=== PATIENT | female | born 1950 | race Caucasian/White ===

== ENCOUNTER → 2016-10-11 | Outpatient (CLI) | payer MEDICARE ==
--- NOTE | 2016-10-12 12:22 | MM ---
Reason for exam: screening (asymptomatic). Last mammogram was performed 1 year and 8 months ago. History: Patient is postmenopausal. Took estrogen for 5 years. Physical Findings: A clinical breast exam by your physician is recommended on an annual basis and results should be correlated with mammographic findings. MG 3D Screening Mammo W/Cad Bilateral CC and MLO view(s) were taken. Prior study comparison: February 17, 2015, bilateral MG screening mammo w CAD. February 09, 2014, left breast MG work up mamm w CAD LT. The breast tissue is heterogeneously dense. This may lower the sensitivity of mammography. There is no discrete abnormality. No significant changes when compared with prior studies. ASSESSMENT: Negative, BI-RAD 1 RECOMMENDATION: Routine screening mammogram of both breasts in 1 year.
== END ==
LOC: RADMAMWWP 14:38
PROVIDERS: ATTEND Family Medicine
DX: Z12.31 Encounter for screening mammogram for malignant neoplasm of breast (principal)
CPT/HCPCS: 77063; G0202

== ENCOUNTER 2017-11-06 08:32 | Day surgery (SDC) | payer MEDICARE ==
[2017-10-31 15:30] VITALS: BMI 30.1
[~2017-11-06 08:32] MED LIST: LACTATED RINGERS 1,000 ML IV SCH
[2017-11-06 09:21] VITALS: RESP 16; TEMP 99.1
[2017-11-06] MEDS ORDERED: LIDOCAINE 1% INJ 10MG/ML (20 ML MDV) ONE (10:27)
[2017-11-06] MEDS ORDERED: PROPOFOL 10 MG/ML 20 ML VIAL IV ONE (10:27)
--- NOTE | 2017-11-06 10:45 | P.PCN ---
Date of Procedure: 11/06/17 Procedure(s) Performed: BRIEF HISTORY: Patient is a 67-year-old pleasant white female, scheduled for an elective colonoscopy as a part of screening for colorectal neoplasia. PROCEDURE PERFORMED: Colonoscopy. PREOPERATIVE DIAGNOSIS: Screening for colon cancer. IV sedation per Anesthesia. PROCEDURE: After informed consent was obtained, the patient, was brought into the endoscopy unit. IV sedation was administered by Anesthesia under continuous monitoring. Digital rectal examination was normal. Initially the Olympus CF- 160 flexible video colonoscope was then inserted in the rectum, gradually advanced into the cecum without any difficulty. Careful examination was performed as the scope was gradually being withdrawn. Ileocecal valve and the appendiceal orifice were visualized and appeared normal. Prep was excellent. Mucosa of the cecum, ascending colon, transverse colon, descending colon, sigmoid colon, and rectum appeared normal. Scattered sigmoid diverticulosis seen. Retroflexion was performed in the rectum and small internal hemorrhoids were seen. The patient tolerated the procedure well. IMPRESSION: Normal-appearing colon from rectum to cecum with no evidence of colorectal neoplasia . Scattered sigmoid diverticulosis Small internal hemorrhoids RECOMMENDATIONS: Findings of this examination were discussed with the patient as well as a family. She was advised to have a repeat screening colonoscopy in 10 years.
[2017-11-06 11:03] VITALS: BP 143/83; PULSE 64
== END 2017-11-06 12:10 | disposition home or self-care (01) ==
LOC: ORWHC2ENDO 08:32
PROVIDERS: ATTEND Internal Medicine Gastroenterology
DX: Z12.11 Encounter for screening for malignant neoplasm of colon (principal); K57.30 Diverticulosis of large intestine without perforation or abscess without bleeding; K21.9 Gastro-esophageal reflux disease without esophagitis; I10 Essential (primary) hypertension; K64.8 Other hemorrhoids; Z79.899 Other long term (current) drug therapy
CPT/HCPCS: J2001; J2704; G0121

== ENCOUNTER → 2019-03-18 | Outpatient (CLI) | payer MEDICARE ==
--- NOTE | 2019-03-19 11:44 | MM ---
Reason for exam: screening (asymptomatic). Last mammogram was performed 2 years and 5 months ago. History: Patient is postmenopausal. Took estrogen for 5 years. Physical Findings: A clinical breast exam by your physician is recommended on an annual basis and results should be correlated with mammographic findings. MG 3D Screening Mammo W/Cad Bilateral CC and MLO view(s) were taken. Prior study comparison: October 11, 2016, bilateral MG 3d screening mammo w/cad. February 17, 2015, bilateral MG screening mammo w CAD. The breast tissue is heterogeneously dense. This may lower the sensitivity of mammography. Benign appearing bilateral calcifications. No suspicious abnormality. No significant changes when compared with prior studies. ASSESSMENT: Benign, BI-RAD 2 RECOMMENDATION: Routine screening mammogram of both breasts in 1 year.
== END | disposition home or self-care (01) ==
LOC: RADMAMWWP 09:07
PROVIDERS: ATTEND Family Medicine
DX: Z12.31 Encounter for screening mammogram for malignant neoplasm of breast (principal)
CPT/HCPCS: 77063; 77067

== ENCOUNTER → 2019-03-25 | Outpatient (CLI) | payer MEDICARE ==
--- NOTE | 2019-03-25 12:36 | BD ---
EXAMINATION TYPE: Axial Bone Density DATE OF EXAM: 03/25/2019 COMPARISON: NONE CLINICAL HISTORY: M 81.0 Height: 5 FT 2 1/4 IN Weight: 161 FRAX RISK QUESTIONS: Alcohol (3 or more units per day): NO Family History (Parent hip fracture): NO Glucocorticoids (More than 3mos): NO (Ex: prednisone, prednisolone, methylprednisolone, dexamethasone, and hydrocortisone). History of Fracture in Adulthood: NO Secondary Osteoporosis: 1. Type 1 Diabetes: NO 2. Hyperthyroidism: NO 3. Menopause before 45: YES 4. Malnutrition: NO 5. Chronic liver disease: NO Rheumatoid Arthritis: NO Current Tobacco Use: NO RISK FACTORS HISTORY OF: Active: YES Postmenopausal woman: BEFORE AGE 45 UNSURE MEDICATIONS: Additional Medications: OMEPRAZOLE, AMLODIPINE, CYCLOSPORINE, MAGNESIUM, CALCIUM VIT D Additional History: EXAM MEASUREMENTS: Bone mineral densitometry was performed using the [employer] System. Bone mineral density as measured about the Lumbar spine is: ----- L1-L4(G/cm2): 1.188 T Score Values are as follows: ----- L2: -0.4 ----- L3: 1.4 ----- L4: -0.4 ----- L1-L4: 0.1 BASELINE HERE Bone mineral density about the R hip (g/cm2): 0.920 Bone mineral density about the L hip (g/cm2): 0.886 T Score values are as follows: -----R Neck: -0.8 -----L Neck: -1.1 -----R Total: -0.6 -----L Total: -1.0 BASELINE IMPRESSION: Osteopenia (T Score between -2.5 and -1). There is slightly increased risk of fracture and the patient may be considered for treatment. Re-Screen 2-5 years. NOTE: T-SCORE=SD OF THE YOUNG ADULT MEAN.
== END | disposition home or self-care (01) ==
LOC: RADBDWWP 07:42
PROVIDERS: ATTEND Family Medicine
DX: M81.0 Age-related osteoporosis without current pathological fracture (principal)
CPT/HCPCS: 77080

== ENCOUNTER → 2020-01-05 | Outpatient (CLI) | payer MEDICARE ==
[2020-01-05 15:16] LABS: Basophils # (A) 0.1 k/uL (0-0.2); Basophils % (A) 1 %; Eosinophils # (A) 0.1 k/uL (0-0.7); Eosinophils % (A) 1 %; HGB 13.7 gm/dL (11.4-16.0); Lymphocytes # (A) 1.8 k/uL (1.0-4.8); Lymphocytes % (A) 29 %; MCH 30.4 pg (25.0-35.0); MCHC 31.8 g/dL (31.0-37.0); MCV 95.5 fL (80.0-100.0); Mean Platelet Volume 7.3; Monocytes # (A) 0.4 k/uL (0-1.0); Monocytes % (A) 7 %; Neutrophils # (A) 3.6 k/uL (1.3-7.7); Neutrophils % (A) 59 %; Platelet Count 261 k/uL (150-450); RBC 4.51 m/uL (3.80-5.40); RDW 12.5 % (11.5-15.5); WBC 6.1 k/uL (3.8-10.6)
[2020-01-05 21:02] LABS: African American GFR (CKD) 75.6 (60.0-200.0); Albumin 4.7 g/dL (3.80-4.90); Albumin/Globulin Ratio 2.14 (1.60-3.17); Anion Gap 8.6 mmol/L (4.00-12.00); BUN/Creat Ratio 23.33 Ratio (12.00-20.00); Calcium 9.6 mg/dL (8.7-10.3); Carbon Dioxide 26.4 mmol/L (21.6-31.8); Globulin 2.2 g/dL (1.6-3.3); Non-African American GFR(CKD) 65.2 (60.0-200.0); Potassium 4.3 mmol/L (3.5-5.5); Total Bilirubin 0.8 mg/dL (0.3-1.2); Total Protein 6.9 g/dL (6.2-8.2)
== END | disposition home or self-care (01) ==
LOC: LABWHC1 14:03
PROVIDERS: ATTEND Urology
DX: N30.10 Interstitial cystitis (chronic) without hematuria (principal)
CPT/HCPCS: 36415; 80053; 85025

== ENCOUNTER → 2020-05-31 | Outpatient (CLI) | payer MEDICARE ==
--- NOTE | 2020-06-01 09:50 | MM ---
Reason for exam: screening (asymptomatic). Last mammogram was performed 1 year and 2 months ago. History: Patient is postmenopausal. Family history of breast cancer in paternal cousin. Took estrogen for 5 years. Physical Findings: A clinical breast exam by your physician is recommended on an annual basis and results should be correlated with mammographic findings. MG 3D Screening Mammo W/Cad Bilateral CC and MLO view(s) were taken. Prior study comparison: March 18, 2019, bilateral MG 3d screening mammo w/cad. October 11, 2016, bilateral MG 3d screening mammo w/cad. The breast tissue is heterogeneously dense. This may lower the sensitivity of mammography. Right breast retroareolar nodularity. ASSESSMENT: Incomplete: need additional imaging evaluation, BI-RAD 0 RECOMMENDATION: Special view mammogram and ultrasound of the right breast. [facility] will attempt to contact patient to return for supplemental views and ultrasound.
== END | disposition home or self-care (01) ==
LOC: RADMAMWWP 12:59
PROVIDERS: ATTEND Family Medicine
DX: Z12.31 Encounter for screening mammogram for malignant neoplasm of breast (principal)
CPT/HCPCS: 77063; 77067

== ENCOUNTER → 2020-06-09 | Outpatient (CLI) | payer MEDICARE ==
--- NOTE | 2020-06-10 11:35 | MM ---
Reason for exam: additional evaluation requested from abnormal screening. Last mammogram was performed less than 1 month ago. History: Patient is postmenopausal. Family history of breast cancer in paternal cousin. Took estrogen for 5 years. Physical Findings: Nurse did not find any significant physical abnormalities on exam. MG 3D Work Up W/Cad RT Spot compression CC, spot compression MLO, and LM view(s) were taken of the right breast. Prior study comparison: May 31, 2020, bilateral MG 3d screening mammo w/cad. March 18, 2019, bilateral MG 3d screening mammo w/cad. Persistent retroareolar nodularity. Ultrasound recommended. These results were verbally communicated with the patient and result sheet given to the patient on 06/09/20. ASSESSMENT: Incomplete: need additional imaging evaluation, BI-RAD 0 RECOMMENDATION: Ultrasound of the right breast.
--- NOTE | 2020-06-10 11:36 | USB ---
Reason for exam: additional evaluation requested from abnormal screening. History: Patient is postmenopausal. Family history of breast cancer in paternal cousin. Took estrogen for 5 years. US Breast Workup Limited RT Right limited breast ultrasound including focal area of concern, retroareolar and axilla demonstrates duct ectactia at the posterior nipple. These results were verbally communicated with the patient and result sheet given to the patient on 06/09/20. ASSESSMENT: Benign, BI-RAD 2 RECOMMENDATION: Return to routine screening mammogram schedule for both breasts.
== END | disposition home or self-care (01) ==
LOC: RADMAMWWP 14:48
PROVIDERS: ATTEND Family Medicine
DX: R92.8 Other abnormal and inconclusive findings on diagnostic imaging of breast (principal)
CPT/HCPCS: 77065; 76642; G0279; 77061

== ENCOUNTER → 2021-07-05 | Outpatient (CLI) | payer MEDICARE ==
[2021-07-05 18:27] LABS: Basophils # (A) 0.04 X 10*3/uL (0.00-0.10); Basophils % (A) 0.7 %; Eosinophils % (A) 1.8 %; HCT 43.3 % (37.2-46.3); HGB 14.2 g/dL (12.0-15.0); Immature Grans, Automated 0.2 %; Lymphocytes # (A) 1.77 X 10*3/uL (0.90-5.00); Lymphocytes % (A) 31.8 %; MCH 31.2 pg (27.0-32.0); MCHC 32.8 g/dL (32.0-37.0); MCV 95.2 fL (80.0-97.0); Mean Platelet Volume 9.7 fL (9.5-12.2); Monocytes # (A) 0.53 X 10*3/uL (0.20-1.00); Monocytes % (A) 9.5 %; NRBC Per 100 WBC 0 /100 WBCS (0.0-0.0); Neutrophils # (A) 3.11 X 10*3/uL (1.80-7.70); Platelet Count 305 X 10*3/uL (140-440); RBC 4.55 X 10*6/uL (4.10-5.20); RDW 12.7 % (11.5-14.5); WBC 5.56 X 10*3/uL (4.50-10.00)
[2021-07-05 18:46] LABS: African American GFR (CKD) 80.5 (60.0-200.0); Non-African American GFR(CKD) 69.4 (60.0-200.0)
[2021-07-05 18:54] LABS: Hepatitis B Surface AB- Quant 3.5 mIU/mL; Hepatitis B Surface Antibody Nonreactive (Nonreactive)
[2021-07-05 18:55] LABS: Hepatitis B Surface Antigen Nonreactive (Nonreactive)
== END | disposition home or self-care (01) ==
LOC: LABWHC1 12:02
PROVIDERS: ATTEND Dermatology
DX: L92.0 Granuloma annulare (principal)
CPT/HCPCS: 36415; 82565; 84450; 84460; 85025; 86480; 86706; 87340

== ENCOUNTER → 2021-08-25 | Outpatient (CLI) | payer MEDICARE ==
--- NOTE | 2021-08-29 14:11 | MM ---
Reason for Exam: Screening (asymptomatic). Last mammogram was performed 1 year(s) and 3 month(s) ago. Patient History: Menarche at age 11. First Full-Term at age 20. Hysterectomy at age 58. Postmenopausal. Estrogen for 5 years until age 54. Paternal cousin had breast cancer. Film Views: Bilateral CC views were taken. Bilateral MLO views were taken. Prior Study Comparison: 03/18/2019 Bilateral Screening Mammogram, [facility]. 05/31/2020 Bilateral Screening Mammogram, [facility]. Tissue Density: The breast tissue is heterogeneously dense. This may lower the sensitivity of mammography. Findings: Analyzed By CAD. There are benign appearing round calcifications bilaterally. No discrete abnormality. Overall Assessment: Benign, BI-RAD 2 Management: Screening Mammogram of both breasts in 1 year.
== END | disposition home or self-care (01) ==
LOC: RADMAMWWP 12:40
PROVIDERS: ATTEND Family Medicine
DX: Z12.31 Encounter for screening mammogram for malignant neoplasm of breast (principal)
CPT/HCPCS: 77063; 77067

== ENCOUNTER → 2022-02-13 | Outpatient (CLI) | payer MEDICARE ==
[2022-02-13 14:44] LABS: ALT 7 U/L (8-44); AST 16 U/L (13-35); African American GFR (CKD) 78.4 (60.0-200.0); Albumin 4.5 g/dL (3.8-4.9); Alkaline Phosphatase 70 U/L (41-126); BUN/Creat Ratio 25.14 Ratio (12.00-20.00); Blood Urea Nitrogen 21.7 mg/dL (9.0-27.0); Calcium 9.6 mg/dL (8.7-10.3); Carbon Dioxide 28.6 mmol/L (20.0-27.5); Chloride 104 mmol/L (96-109); Chol/HDL Ratio 2.83 Ratio; Globulin 2.8 g/dL (1.6-3.3); Glucose 95 mg/dL (70-110); LDL Cholesterol,Calculated 105.3 mg/dL (0.0-131.0); Non-African American GFR(CKD) 67.7 (60.0-200.0); Potassium 4.2 mmol/L (3.5-5.5); Sodium 142 mmol/L (135-145); Total Protein 7.3 g/dL (6.2-8.2); VLDL Calculation 18.84 mg/dL (5.00-40.00)
== END | disposition home or self-care (01) ==
LOC: LABWHC1 08:35
PROVIDERS: ATTEND Family Medicine
DX: Z00.00 Encounter for general adult medical examination without abnormal findings (principal); E78.5 Hyperlipidemia, unspecified
CPT/HCPCS: 36415; 80053; 80061

== ENCOUNTER 2022-04-20 09:41 | Emergency (ER) | payer MEDICARE ==
[2022-04-20 10:09] VITALS: BP 113/76; PULSE 85; RESP 20; TEMP 98.1
--- NOTE | 2022-04-20 10:56 | XR ---
EXAMINATION TYPE: XR Hip Complete RT DATE OF EXAM: 04/20/2022 COMPARISON: None HISTORY: Injury, pain TECHNIQUE: 2 view right hip FINDINGS: Femoral head articulates with the acetabulum. Joint space is preserved. No acute fracture o r dislocation is evident. IMPRESSION: 1. No acute osseous abnormality right hip
[2022-04-20] MEDS ORDERED: KETOROLAC 15 MG/ML 1 ML VIAL IM STA (11:17)
--- NOTE | 2022-04-20 12:35 | CT ---
EXAMINATION TYPE: CT lumbar spine wo con DATE OF EXAM: 04/20/2022 COMPARISON: None HISTORY: Back pain, pt injured RT hip yesterday and not able to apply pressure to walk. CT DLP: 788.4 mGycm CONTRAST: None TECHNIQUE: CT of the lumbar spine is performed on a spiral scan at 3 mm thick sections. Reconstructed images are performed in the coronal and sagittal planes. FINDINGS: There is diffuse loss of disc height throughout the lumbar spine. Vacuum disc phenomenon is present L1-2 through L4-5. Vertebral body heights appear preserved. Some mild endplate changes are p resent L2-3 through L4-5. T12-L1: No focal disc herniation or significant disc bulge is evident. No spinal canal stenosis or neural foraminal stenosis is present. L1-L2: Mild disc bulge is present with anterior thecal sac flattening. No AP spinal canal stenosis is present. Neural foramen appear patent. No spinal canal stenosis or neural foraminal stenosis is pres ent L2-L3: Degenerative disc changes has some residual disc with flattening along the anterior thecal sac . No AP spinal canal stenosis is present. Moderate left foraminal narrowing is present. Moderate to s evere right foraminal narrowing is present. L3-L4: Mild residual disc is anterior thecal sac flattening. No AP spinal canal stenosis present. No spinal canal stenosis. Facet hypertrophy has moderate left posterior lateral thecal sac impression. M oderate left and right foraminal narrowing is present. L4-L5: No focal disc herniation or significant disc bulge is evident. Mild anterior thecal sac flatte shannan from residual disc is present. No spinal canal stenosis. Mild left foraminal narrowing is pres ent. Moderate to severe right foraminal stenosis is present. L5-S1: No focal disc herniation or significant disc bulge is evident. No spinal canal stenosis or n eural foraminal stenosis is present Vertebral alignment appears normal. IMPRESSION: 1. Multilevel degenerative disc changes. Mild anterior thecal sac flattening from residual disc bulgi ng or endplate changes are present through the lumbar spine. 2. Facet hypertrophy most notably left L3-4 with moderate posterior lateral thecal sac impression. 3. Foraminal stenosis discussed above. Lipscomb greatest at the right L4-5 level with moderate to sever e narrowing. 4. No acute changes identified.
--- NOTE | 2022-04-20 12:40 | CT ---
EXAMINATION TYPE: CT pelvis wo con DATE OF EXAM: 04/20/2022 COMPARISON: None HISTORY: Back pain, pt injured RT hip yesterday and not able to apply pressure to walk. CT DLP: 680.5 mGycm Automated exposure control for dose reduction was used. Contrast: None Technique: Axial images 3 mm thick sections. Reconstructed images in the coronal and sagittal plane. FINDINGS: The femoral heads articulate with the acetabulum. Subchondral cysts in the left acetabulum roof. No a cute fractures are identified. Sacroiliac joints and symphysis pubis appear intact. No acute pelvic fractures are identified. Note is made of a large contusion of the subcutaneous right hip soft tissues. Underlying hematoma oracio ears to be present with thickening of the musculature about the hip compared to the left hip. This m easures approximately 8.5 x 3.8 cm in size. Example image series 204 image 31. Loops of bowel within the pelvis visualized appear unremarkable. No free air is within the pelvis. Ur inary bladder appears unremarkable. Uterus and ovaries are not identified. No free fluid is within th e pelvis. IMPRESSION: 1. LARGE CONTUSION WITH UNDERLYING HEMATOMA LATERAL PELVIC MUSCULATURE SUPERIOR TO THE LEFT HIP.
--- NOTE | 2022-04-20 12:48 | ED ---
General Adult HPI - General Chief complaint: Extremity Injury, Lower Stated complaint: rt hip pain Time Seen by Provider: 04/20/22 10:45 Source: patient, RN notes reviewed Mode of arrival: wheelchair Limitations: physical limitation - History of Present Illness Initial comments: 72-year-old female presents emergency Department with chief complaint of right hip low back pain. Patient states that pain is severe symptoms worsen. Patient states she started when she was at her mothers tried to caregiver states that she's trying to the bathroom started over the bathroom quickly her legs crossed and felt the pain onset. He states it's in her lateral portion of her right hip in buttocks region. Patient denies any traumatic falls. States it's increase in pain with weightbearing, movement of her leg in certain positions she has no pain when she sits upright. She denies any bowel, bladder incontinence or retention. Denies any saddle anesthesia. - Related Data Home Medications Medication Instructions Recorded Confirmed amLODIPine BESYLATE/BENAZEPRIL 1 each PO DAILY 03/25/14 11/06/17 [Amlodipine-Benazepril 5-10 mg] Acetaminophen Tab [Tylenol Tab] 325 - 650 mg PO Q6H PRN 10/31/17 10/31/17 Multivitamins, Thera [Multivitamin 1 tab PO DAILY 10/31/17 10/31/17 (formulary)] Omeprazole 20 mg PO DAILY 10/31/17 10/31/17 cycloSPORINE [cycloSPORINE (GEQ 100 mg PO DAILY 10/31/17 10/31/17 for SandIMMUNE) 100MG] Previous Rx's Medication Instructions Recorded Ketorolac [Toradol] 10 mg PO Q8HR #15 tab 04/20/22 traMADol HCl [Ultram] 50 mg PO Q6H PRN #12 tab 04/20/22 Allergies Allergy/AdvReac Type Severity Reaction Status Date / Time amoxicillin Allergy Rash/Hives Verified 04/20/22 10:10 doxycycline Allergy Rash/Hives Verified 04/20/22 10:10 Review of Systems ROS Statement: Those systems with pertinent positive or pertinent negative responses have been documented in the HPI. ROS Other: All systems not noted in ROS Statement are negative. Past Medical History Past Medical History: GERD/Reflux, Hypertension, Osteoarthritis (OA) Additional Past Medical History / Comment(s): hx of bladder ulcers History of Any Multi-Drug Resistant Organisms: None Reported Past Surgical History: Bladder Surgery, Hysterectomy, Tonsillectomy Additional Past Surgical History / Comment(s): cystocele surgery x2, Past Anesthesia/Blood Transfusion Reactions: Postoperative Nausea & Vomiting (PONV) Past Psychological History: No Psychological Hx Reported Smoking Status: Never smoker Past Alcohol Use History: Occasional Past Drug Use History: None Reported - Past Family History Mother Family Medical History: Cancer Additional Family Medical History / Comment(s): skin Father Family Medical History: Cancer Additional Family Medical History / Comment(s): prostate General Exam Limitations: no limitations General appearance: alert, in no apparent distress Head exam: Present: atraumatic, normocephalic, normal inspection Eye exam: Present: normal appearance, PERRL, EOMI. Absent: scleral icterus, conjunctival injection, periorbital swelling Respiratory exam: Present: normal lung sounds bilaterally. Absent: respiratory distress, wheezes, rales, rhonchi, stridor Cardiovascular Exam: Present: regular rate, normal rhythm, normal heart sounds. Absent: systolic murmur, diastolic murmur, rubs, gallop, clicks GI/Abdominal exam: Present: soft, normal bowel sounds. Absent: distended, tenderness, guarding, rebound, rigid Extremities exam: Present: other (Pain with abduction, flexion extension of the right hip there is minimal tenderness palpation over the right hip region is neurovascularly intact, pain with logrolling) Neurological exam: Present: alert, reflexes normal. Absent: motor sensory deficit Skin exam: Present: warm, dry, intact, normal color. Absent: rash Course Vital Signs 04/20/22 10:07 Temperature 98.1 F Pulse Rate 85 Respiratory 20 Rate Blood Pressure 113/76 O2 Sat by Pulse 99 Oximetry Medical Decision Making - Medical Decision Making Was pt. sent in by a medical professional or institution (, PA, GLUE MAKER, urgent care, hospital, or fdc...) When possible be specific @ -No Did you speak to anyone other than the patient for history (EMS, parent, family, police, friend...)? What history was obtained from this source @ -No Did you review nursing and triage notes (agree or disagree)? Why? @ -I reviewed and agree with nursing and triage notes Were old charts reviewed (outside hosp., previous admission, EMS record, old EKG, old radiological studies, urgent care reports/EKG's, fdc records)? Report findings @ -No old charts were reviewed Differential Diagnosis (chest pain, altered mental status, abdominal pain women, abdominal pain men, vaginal bleeding, weakness, fever, dyspnea, syncope, headache, dizziness, GI bleed, back pain, seizure, CVA, palpatations, mental health)? @ -Right hip strain, right hip dislocation, right hip fracture, lumbar radiculopathy, this is is not all inconclusive EKG interpreted by me (3pts min.). @ -As above X-rays interpreted by me (1pt min.). @ -X-ray of the right hip does not show any acute process., Mild degenerative changes CT interpreted by me (1pt min.). @ -CT of the lumbar spine shows disc bulging, degenerative changes, CT of the pelvis shows large hematoma of the right hip region U/S interpreted by me (1pt. min.). @ -None done What testing was considered but not performed or refused? (CT, X-rays, U/S, labs)? Why? @ -None What meds were considered but not given or refused? Why? @ -Narcotic pain medication patient declined Did you discuss the management of the patient with other professionals (professionals i.e. , PA, GLUE MAKER, lab, RT, psych nurse, oncology social worker, validation architect, teacher, police liaison officer, egg caser)? Give summary @ -No Was smoking cessation discussed for >3mins.? @ -No Was critical care preformed (if so, how long)? @ -No Were there social determinants of health that impacted care today? How? (Homelessness, low income, unemployed, alcoholism, drug addiction, transportation, low edu. Level, literacy, decrease access to med. care, detention, rehab)? @ -No Was there de-escalation of care discussed even if they declined (Discuss DNR or withdrawal of care, Hospice)? DNR status @ -No What co-morbidities impacted this encounter? (DM, HTN, Smoking, COPD, CAD, Cancer, CVA, ARF, Chemo, Hep., AIDS, mental health diagnosis, sleep apnea, morbid obesity)? @ -None Was patient admitted / discharged? Hospital course, mention meds given and route, prescriptions, significant lab abnormalities, going to OR and other per tinent info. @ -Discharged Undiagnosed new problem with uncertain prognosis? @ -No Drug Therapy requiring intensive monitoring for toxicity (Heparin, Nitro, Insulin, Cardizem)? @ -No Were any procedures done? @ -No Diagnosis/symptom? @ -Right hip strain Acute, or Chronic, or Acute on Chronic? @ -acute Uncomplicated (without systemic symptoms) or Complicated (systemic symptoms)? @ -uncomplicated Side effects of treatment? @ -No Exacerbation, Progression, or Severe Exacerbation? @ -No Poses a threat to life or bodily function? How? (Chest pain, [place], [place], pneumonia, PE, COPD, DKA, ARF, appy, cholecystitis, CVA, Diverticulitis, Homicidal, Suicidal, threat to staff... and all critical care pts) @ -No Diagnosis/symptom? @ -Right hip hematoma Acute, or Chronic, or Acute on Chronic? @ -acute Uncomplicated (without systemic symptoms) or Complicated (systemic symptoms)? @ -uncomplicated Side effects of treatment? @ -no Exacerbation, Progression, or Severe Exacerbation @ -no Poses a threat to life or bodily function? @ -no Disposition Clinical Impression: Strain of right hip, Hip hematoma, right Disposition: HOME SELF-CARE Condition: Stable Instructions (If sedation given, give patient instructions): Hip Sprain (ED) Additional Instructions: Please return to the Emergency Department if symptoms worsen or any other concerns. Prescriptions: Ketorolac [Toradol] 10 mg PO Q8HR #15 tab traMADol HCl [Ultram] 50 mg PO Q6H PRN #12 tab PRN Reason: Pain Is patient prescribed a controlled substance at d/c from ED?: Yes When asked, does pt state using other controlled substances?: No If prescribed controlled substance>3 days was MAPS reviewed?: Prescribed <3 Days If opioid is for acute pain is fill amount 7 days or less?: Yes If Rx opioid, was Start Talking consent form obtained?: Yes Referrals: Ruben Frias DO [Primary Care Provider] - 1-2 days Juice Schwab MD [STAFF PHYSICIAN] - 1-2 days Time of Disposition: 12:48
== END 2022-04-20 13:30 | disposition home or self-care (01) ==
LOC: EC 09:41
DX: S76.011A Strain of muscle, fascia and tendon of right hip, initial encounter (principal); T14.8XXA Other injury of unspecified body region, initial encounter; I10 Essential (primary) hypertension; K21.9 Gastro-esophageal reflux disease without esophagitis; M19.90 Unspecified osteoarthritis, unspecified site; Z79.899 Other long term (current) drug therapy; Z88.0 Allergy status to penicillin; Z88.1 Allergy status to other antibiotic agents; X58.XXXA Exposure to other specified factors, initial encounter; Y92.009 Unspecified place in unspecified non-institutional (private) residence as the place of occurrence of the external cause
CPT/HCPCS: 73502; 72192; 72131; 99284; 96372; J1885

== ENCOUNTER → 2022-08-28 | Outpatient (CLI) | payer MEDICARE ==
--- NOTE | 2022-08-28 19:12 | BD ---
EXAMINATION TYPE: Axial Bone Density DATE OF EXAM: 08/28/2022 CLINICAL HISTORY: 72 years old Female. ICD-10 CODE: M89.9,R29.890 LOSS HEIGHT,M89.9 DISORDER OF BONE ,UNS Height: 62 Weight: 155 FRAX RISK QUESTIONS: Family History (Parent hip fracture): no History of Fracture in Adulthood: no Secondary Osteoporosis: no Rheumatoid Arthritis: no RISK FACTORS HISTORY OF: Family History of Osteoporosis: no Active: yes Diet low in dairy products/other sources of calcium: no Postmenopausal woman: yes Lost more than 2 inches in height since high school: no Frequent falls: no Poor Health: no MEDICATIONS: Additional Medications: yes hbp meds, reflux, bladder meds, skin meds EXAM MEASUREMENTS: Bone mineral densitometry was performed using the [employer] System. Bone mineral density as measured about the Lumbar spine is: ----- L1-L4(G/cm2): 1.213 T Score Values are as follows: ----- L1: -0.7 ----- L2: 0.4 ----- L3: 1.2 ----- L4: -0.1 ----- L1-L4: 0.3 Z Score Values are as follows: ----- L1: 0.8 ----- L2: 2.0 ----- L3: 2.7 ----- L4: 1.4 ----- L1-L4: 1.8 Bone mineral density has: Increased 2.1% since study of: 03/25/2019 Bone mineral density about the R hip (g/cm2): 0.880 Bone mineral density about the L hip (g/cm2): 0.835 T Score values are as follows: -----R Neck: -1.0 -----L Neck: -1.5 -----R Total: -1.0 -----L Total: -1.4 Z Score values are as follows: -----R Neck: 0.7 -----L Neck: 0.2 -----R Total: 0.4 -----L Total: 0.1 Bone mineral density has: Decreased -5.2% since study of: 03/25/2019 FRAX%s: The graph provided illustrates a 10.4% chance for a major osteoporotic fx and a 1.7% chance f or the hips probability for fx in 10 years time. IMPRESSION: Osteopenia (T Score between -2.5 and -1). There is slightly increased risk of fracture and the patient may be considered for treatment. Re-Screen 2-5 years. NOTE: T-SCORE=SD OF THE YOUNG ADULT MEAN.
--- NOTE | 2022-08-29 09:13 | MM ---
Reason for Exam: Screening (asymptomatic). Last screening mammogram was performed 12 month(s) ago. Patient History: Menarche at age 11. First Full-Term at age 20. Hysterectomy at age 58. Postmenopausal. Estrogen for 5 years until age 54. Paternal cousin had breast cancer, age 30. Paternal cousin had breast cancer, age 50. Risk Values: Berna 5 year model risk: 1.7%. NCI Lifetime model risk: 4.5%. Prior Study Comparison: 05/31/2020 Bilateral Screening Mammogram, [facility]. 06/09/2020 Right Diagnostic Mammogram, [facility]. 08/25/2021 Bilateral MG 3D screening mammo w/cad, [facility]. Tissue Density: The breast tissue is heterogeneously dense. This may lower the sensitivity of mammography. Findings: Analyzed By CAD. There is no suspicious group of microcalcifications or new suspicious mass in either breast. Benign round calcifications within both breasts. Overall Assessment: Benign, BI-RAD 2 Management: Screening Mammogram of both breasts in 1 year. A clinical breast exam by your physician is recommended on an annual basis and results should be correlated with mammographic findings. Electronically signed and approved by: Nishant Cortes D.O.
== END | disposition home or self-care (01) ==
LOC: RADBDWWP 15:17
PROVIDERS: ATTEND Family Medicine
DX: Z12.31 Encounter for screening mammogram for malignant neoplasm of breast (principal); Z13.820 Encounter for screening for osteoporosis; M85.89 Other specified disorders of bone density and structure, multiple sites; R29.890 Loss of height; Z78.0 Asymptomatic menopausal state; Z80.3 Family history of malignant neoplasm of breast
CPT/HCPCS: 77063; 77067; 77080

== ENCOUNTER → 2022-08-28 | Outpatient (CLI) | payer MEDICARE ==
[2022-08-28 21:50] LABS: Basophils # (A) 0.04 X 10*3/uL (0.00-0.10); Basophils % (A) 0.8 %; Eosinophils # (A) 0.08 X 10*3/uL (0.04-0.35); Eosinophils % (A) 1.5 %; HCT 45.5 % (37.2-46.3); HGB 14.5 g/dL (12.0-15.0); Immature Grans, Automated 0.2 %; Lymphocytes # (A) 1.66 X 10*3/uL (0.90-5.00); Lymphocytes % (A) 31.9 %; MCHC 31.9 g/dL (32.0-37.0); MCV 97.4 fL (80.0-97.0); Mean Platelet Volume 9.8 fL (9.5-12.2); Monocytes # (A) 0.44 X 10*3/uL (0.20-1.00); Monocytes % (A) 8.4 %; NRBC Per 100 WBC 0 /100 WBCS (0.0-0.0); Neutrophils # (A) 2.98 X 10*3/uL (1.80-7.70); Neutrophils % (A) 57.2 %; Platelet Count 278 X 10*3/uL (140-440); RBC 4.67 X 10*6/uL (4.10-5.20); RDW 12.8 % (11.5-14.5); WBC 5.21 X 10*3/uL (4.50-10.00)
[2022-08-29 00:12] LABS: African American GFR (CKD) 52.3 (60.0-200.0); Albumin 4.9 g/dL (3.8-4.9); Albumin/Globulin Ratio 1.96 (1.60-3.17); Anion Gap 9.7 mmol/L (10.00-18.00); Blood Urea Nitrogen 15.6 mg/dL (9.0-27.0); Calcium 10.1 mg/dL (8.7-10.3); Carbon Dioxide 29.3 mmol/L (20.0-27.5); Globulin 2.5 g/dL (1.6-3.3); Non-African American GFR(CKD) 45.1 (60.0-200.0); Potassium 4.3 mmol/L (3.5-5.5); Total Bilirubin 0.5 mg/dL (0.30-1.20); Total Protein 7.4 g/dL (6.2-8.2)
== END | disposition home or self-care (01) ==
LOC: LABWHC1 13:49
PROVIDERS: ATTEND Urology
DX: N30.10 Interstitial cystitis (chronic) without hematuria (principal)
CPT/HCPCS: 36415; 80053; 85025

== ENCOUNTER → 2023-06-25 | Outpatient (CLI) | payer MEDICARE ==
[2023-06-25 16:37] LABS: ALT 23 U/L (8-44); AST 26 U/L (13-35); Albumin 4.6 g/dL (3.8-4.9); Albumin/Globulin Ratio 1.44 Ratio (1.60-3.17); Alkaline Phosphatase 106 U/L (41-126); Bilirubin, Conjugated <0.20 mg/dL (0.20-0.40); Bilirubin,Unconjugated >0.40 mg/dL (0.20-1.00); Globulin 3.2 g/dL (1.6-3.3); Total Bilirubin 0.6 mg/dL (0.3-1.2); Total Protein 7.8 g/dL (6.2-8.2)
[2023-06-25 16:41] LABS: HCT 46.1 % (37.2-46.3); MCH 31.1 pg (27.0-32.0); MCHC 32.5 g/dL (32.0-37.0); MCV 95.4 FL (80.0-97.0); NRBC Per 100 WBC 0 X 10*3/uL (0.00-0.01); Platelet Count 253 X 10*3/uL (140-440); RBC 4.83 X 10*6/uL (4.10-5.20); RDW 12.9 % (11.5-14.5); WBC 6.09 X 10*3/uL (4.50-10.00)
[2023-06-25 16:42] LABS: Basophils # (A) 0.02 X 10*3/uL (0.00-0.10); Basophils % (A) 0.3 %; Eosinophils # (A) 0.12 X 10*3/uL (0.04-0.35); Lymphocytes # (A) 1.39 X 10*3/uL (0.90-5.00); Lymphocytes % (A) 22.8 %; Monocytes % (A) 8.2 %; Neutrophils # (A) 4.03 X 10*3/uL (1.80-7.70); Neutrophils % (A) 66.2 %
== END | disposition home or self-care (01) ==
LOC: LABWHC1 12:08
PROVIDERS: ATTEND Dermatology MOHS-Micrographic Surgery
DX: L92.0 Granuloma annulare (principal)
CPT/HCPCS: 36415; 80076; 82955; 85025

== ENCOUNTER → 2023-08-02 | Outpatient (CLI) | payer MEDICARE ==
[2023-08-02 18:19] LABS: Basophils # (A) 0.04 X 10*3/uL (0.00-0.10); Basophils % (A) 0.7 %; Eosinophils # (A) 0 X 10*3/uL (0.04-0.35); Eosinophils % (A) 0 %; HCT 43.3 % (37.2-46.3); Lymphocytes # (A) 1.61 X 10*3/uL (0.90-5.00); Lymphocytes % (A) 29.4 %; MCH 31.7 pg (27.0-32.0); MCHC 32.3 g/dL (32.0-37.0); MCV 98.2 FL (80.0-97.0); Mean Platelet Volume 9.8 FL (9.5-12.2); Monocytes # (A) 0.49 X 10*3/uL (0.20-1.00); Monocytes % (A) 8.9 %; NRBC Per 100 WBC 0 X 10*3/uL (0.00-0.01); Neutrophils # (A) 3.33 X 10*3/uL (1.80-7.70); Neutrophils % (A) 60.8 %; Platelet Count 294 X 10*3/uL (140-440); RBC 4.41 X 10*6/uL (4.10-5.20); RDW 12.9 % (11.5-14.5); WBC 5.48 X 10*3/uL (4.50-10.00)
== END | disposition home or self-care (01) ==
LOC: LABWHC1 13:01
PROVIDERS: ATTEND Dermatology MOHS-Micrographic Surgery
DX: L92.0 Granuloma annulare (principal)
CPT/HCPCS: 36415; 85025

== ENCOUNTER → 2023-09-04 | Outpatient (CLI) | payer MEDICARE ==
[2023-09-04 15:05] LABS: BUN/Creat Ratio 29.88 Ratio (12.00-20.00); Blood Urea Nitrogen 23.9 mg/dL (9.0-27.0); Calcium 9.9 mg/dL (8.7-10.3); Carbon Dioxide 28.4 mmol/L (21.6-31.8); Chloride 106 mmol/L (96-109); Chol/HDL Ratio 4.07 Ratio; Glucose 103 mg/dL (70-110); LDL Cholesterol,Calculated 130.7 mg/dL (0.0-131.0); Potassium 5.1 mmol/L (3.5-5.5); Sodium 144 mmol/L (135-145)
--- NOTE | 2023-09-10 19:50 | MM ---
Reason for Exam: Screening (asymptomatic). Last screening mammogram was performed 12 month(s) ago. Patient History: Menarche at age 11. First Full-Term at age 20. Hysterectomy at age 58. Postmenopausal. Estrogen for 5 years until age 54. Paternal cousin had breast cancer, age 30. Paternal cousin had breast cancer, age 50. Risk Values: Berna 5 year model risk: 1.7%. NCI Lifetime model risk: 4.3%. Prior Study Comparison: 06/09/2020 Right Diagnostic Mammogram, [facility]. 08/25/2021 Bilateral MG 3D screening mammo w/cad, [facility]. 08/28/2022 Bilateral MG 3D screening mammo w/cad, [facility]. Tissue Density: The breasts are heterogeneously dense, which may obscure small masses. Findings: Analyzed By CAD. There is no suspicious group of microcalcifications or new suspicious mass in either breast. Overall Assessment: Negative, BI-RAD 1 Management: Screening Mammogram of both breasts in 1 year. . Patient should continue monthly self-breast exams. A clinical breast exam by your physician is recommended on an annual basis. This exam should not preclude additional follow-up of suspicious palpable abnormalities. Note on Berna scores and lifetime risk: 1. A Berna score greater than 3% is considered moderate risk. If this is the case, consider specialist referral to assess eligibility for a risk reducing agent. 2. If overall lifetime risk for the development of breast cancer is 20% or higher, the patient may qualify for future screening with alternating mammogram and breast MRI. Electronically signed and approved by: Delfina Jones M.D. Radiologist
== END | disposition home or self-care (01) ==
LOC: RADMAMWWP 07:54
PROVIDERS: ATTEND Family Medicine
DX: Z12.31 Encounter for screening mammogram for malignant neoplasm of breast (principal); I10 Essential (primary) hypertension; Z78.0 Asymptomatic menopausal state; Z80.3 Family history of malignant neoplasm of breast
CPT/HCPCS: 77063; 77067; 80048; 80061

== ENCOUNTER → 2023-09-30 | Outpatient (CLI) | payer MEDICARE ==
[2023-09-30 14:48] LABS: Blood Urea Nitrogen 24.3 mg/dL (9.0-27.0); Calcium 9.7 mg/dL (8.7-10.3); Carbon Dioxide 25.8 mmol/L (21.6-31.8); Chloride 104 mmol/L (96-109); Glucose 96 mg/dL (70-110); Potassium 4.5 mmol/L (3.5-5.5); Sodium 143 mmol/L (135-145)
== END | disposition home or self-care (01) ==
LOC: LABWHC1 08:59
DX: N30.10 Interstitial cystitis (chronic) without hematuria (principal)
CPT/HCPCS: 36415; 80048

== ENCOUNTER → 2023-10-07 | Outpatient (CLI) | payer MEDICARE ==
[2023-10-07 14:55] LABS: HGB 12.8 g/dL (12.0-15.0); MCH 31.8 pg (27.0-32.0); MCHC 30.5 g/dL (32.0-37.0); MCV 104.2 FL (80.0-97.0); Mean Platelet Volume 10.6 FL (9.5-12.2); Monocytes % (A) 10.3 %; NRBC Per 100 WBC 0 X 10*3/uL (0.00-0.01); Neutrophils % (A) 62.6 %; Platelet Count 269 X 10*3/uL (140-440); RBC 4.03 X 10*6/uL (4.10-5.20); RDW 13.2 % (11.5-14.5); WBC 5.62 X 10*3/uL (4.50-10.00)
[2023-10-07 14:56] LABS: Basophils # (A) 0.04 X 10*3/uL (0.00-0.10); Basophils % (A) 0.7 %; Eosinophils # (A) 0.11 X 10*3/uL (0.04-0.35); Lymphocytes # (A) 1.35 X 10*3/uL (0.90-5.00); Monocytes # (A) 0.58 X 10*3/uL (0.20-1.00); Neutrophils # (A) 3.52 X 10*3/uL (1.80-7.70)
== END | disposition home or self-care (01) ==
LOC: LABWHC1 11:26
PROVIDERS: ATTEND Dermatology MOHS-Micrographic Surgery
DX: L92.0 Granuloma annulare (principal); Z79.899 Other long term (current) drug therapy
CPT/HCPCS: 36415; 85025

== ENCOUNTER → 2023-11-08 | Outpatient (CLI) | payer MEDICARE ==
[2023-11-08 17:35] LABS: Blood Urea Nitrogen 18.8 mg/dL (9.0-27.0)
[2023-11-08 17:50] LABS: HCT 41.5 % (37.2-46.3); MCH 33.3 pg (27.0-32.0); MCHC 31.3 g/dL (32.0-37.0); MCV 106.4 FL (80.0-97.0); Mean Platelet Volume 9.9 FL (9.5-12.2); NRBC Per 100 WBC 0 X 10*3/uL (0.00-0.01); Platelet Count 274 X 10*3/uL (140-440); RDW 12.7 % (11.5-14.5); WBC 3.74 X 10*3/uL (4.50-10.00)
[2023-11-08 18:53] LABS: Appearance,Urine Clear (Clear); Bilirubin,Urine Negative (Negative); Blood,Urine Negative (Negative); Color,Urine Yellow (Yellow); Ketones,Urine Negative (Negative); Nitrite,Urine Negative (Negative); Specific Gravity,Urine 1.016 (1.001-1.030); Urobilinogen,Urine 0.2 E.U./DL
[2023-11-08 19:07] LABS: Basophils # (A) 0.03 X 10*3/uL (0.00-0.10); Basophils % (A) 0.8 %; Eosinophils # (A) 0 X 10*3/uL (0.04-0.35); Eosinophils % (A) 0 %; Lymphocytes # (A) 1.23 X 10*3/uL (0.90-5.00); Lymphocytes % (A) 32.9 %; Macrocytosis (M) 2+; Monocytes # (A) 0.32 X 10*3/uL (0.20-1.00); Monocytes % (A) 8.6 %; Neutrophils # (A) 2.15 X 10*3/uL (1.80-7.70); Neutrophils % (A) 57.4 %
== END | disposition home or self-care (01) ==
LOC: LABWHC1 08:57
PROVIDERS: ATTEND Dermatology MOHS-Micrographic Surgery
DX: L92.0 Granuloma annulare (principal); Z79.899 Other long term (current) drug therapy
CPT/HCPCS: 36415; 81003; 82565; 84520; 85025

== ENCOUNTER → 2023-12-18 | Outpatient (CLI) | payer MEDICARE ==
[2023-12-18 15:29] LABS: Basophils # (A) 0.02 X 10*3/uL (0.00-0.10); Basophils % (A) 0.5 %; Eosinophils # (A) 0 X 10*3/uL (0.04-0.35); Eosinophils % (A) 0 %; HCT 43.8 % (37.2-46.3); HGB 14.1 g/dL (12.0-15.0); Lymphocytes # (A) 1.15 X 10*3/uL (0.90-5.00); Lymphocytes % (A) 28.1 %; MCH 32.3 pg (27.0-32.0); MCHC 32.2 g/dL (32.0-37.0); MCV 100.5 FL (80.0-97.0); Mean Platelet Volume 10.3 FL (9.5-12.2); Monocytes # (A) 0.38 X 10*3/uL (0.20-1.00); Monocytes % (A) 9.3 %; NRBC Per 100 WBC 0 X 10*3/uL (0.00-0.01); Neutrophils # (A) 2.53 X 10*3/uL (1.80-7.70); Neutrophils % (A) 61.9 %; Platelet Count 240 X 10*3/uL (140-440); RBC 4.36 X 10*6/uL (4.10-5.20); RDW 11.8 % (11.5-14.5); WBC 4.09 X 10*3/uL (4.50-10.00)
== END | disposition home or self-care (01) ==
LOC: LABWHC1 08:50
PROVIDERS: ATTEND Dermatology MOHS-Micrographic Surgery
DX: L92.0 Granuloma annulare (principal)
CPT/HCPCS: 36415; 85025

== ENCOUNTER → 2024-06-30 | Outpatient (CLI) | payer MEDICARE ==
[2024-06-30 15:41] LABS: ALT 25 U/L (8-44); AST 27 U/L (13-35); Albumin 4.6 g/dL (3.8-4.9); Albumin/Globulin Ratio 1.59 Ratio (1.60-3.17); Alkaline Phosphatase 75 U/L (41-126); BUN/Creat Ratio 22.25 Ratio (12.00-20.00); Blood Urea Nitrogen 17.8 mg/dL (9.0-27.0); Calcium 9.6 mg/dL (8.7-10.3); Chloride 103 mmol/L (96-109); Chol/HDL Ratio 5.22 Ratio; Globulin 2.9 g/dL (1.6-3.3); Glucose 88 mg/dL (70-110); LDL Cholesterol,Calculated 185.5 mg/dL (0.0-131.0); Potassium 4.5 mmol/L (3.5-5.5); Sodium 142 mmol/L (135-145); Total Bilirubin 0.4 mg/dL (0.3-1.2); Total Protein 7.5 g/dL (6.2-8.2)
== END | disposition home or self-care (01) ==
LOC: LABWHC1 08:47
PROVIDERS: ATTEND Family Medicine
DX: Z00.00 Encounter for general adult medical examination without abnormal findings (principal); I10 Essential (primary) hypertension
CPT/HCPCS: 36415; 80053; 80061